=== PATIENT | female | born 2000 | race Two or more races ===

== ENCOUNTER 2022-12-13 19:26 | Emergency (ER) | payer OTHER ==
[~2022-12-13] VITALS: Ht 152.4 cm; Wt 54.0 kg
[2022-12-13] MEDS ORDERED: FAMOTIDINE20 MG PO (20:34)
[2022-12-13] MEDS ORDERED: SPRINTEC 28 DA1 EACH PO (20:35)
== END 2022-12-13 22:38 | disposition left against medical advice (07) ==
LOC: ER 19:26
DX: R30.0 Dysuria (principal)